=== PATIENT | male | born 1975 | race Caucasian/White ===

== ENCOUNTER 2019-08-31 20:22 | Inpatient (IN) | payer OTHER ==
[~2019-08-31] VITALS: Ht 175.3 cm; Wt 79.4 kg
[2019-08-31 20:56] LABS: BASOPHILS # (AUTO) 0.1 K/uL (0.0-8.0); BASOPHILS % (AUTO) 0.7 % (0.0-2.0); EOSINOPHILS # (AUTO) 0.5 K/uL (0.0-0.7); EOSINOPHILS % (AUTO) 3.8 % (0.0-7.0); HEMATOCRIT 31.7 % (36.7-47.1); HEMOGLOBIN 10.3 g/dL (12.5-16.3); LYMPHOCYTES # (AUTO) 1.8 K/uL (20.0-40.0); LYMPHOCYTES % (AUTO) 13.2 % (20.5-51.5); MEAN CORPUSCULAR HEMOGLOBIN 31.3 uug (23.8-33.4); MEAN CORPUSCULAR HGB CONC 33 g/dL (32.5-36.3); MONOCYTES # (AUTO) 1.1 K/uL (2.0-10.0); NEUTROPHILS % (AUTO) 74.3 % (38.5-71.5); PLATELET COUNT (AUTO) 676 K/uL (152-348); WHITE BLOOD COUNT (AUTO) 13.5 K/uL (3.6-10.2)
[2019-08-31 21:05] LABS: CREATININE 1.1 mg/dL (0.6-1.3)
[2019-08-31 21:11] LABS: BILIRUBIN,DIRECT 0.1 mg/dL (0.0-0.2); BILIRUBIN,TOTAL 0.1 mg/dL (0.2-1.0); TOTAL PROTEIN, SERUM 7.2 g/dL (6.4-8.2)
[2019-08-31] MEDS ORDERED: SERT100T PO (21:34)
[2019-08-31] MEDS ORDERED: ONDANSETRON 4 MG/2 ML VIAL IV ONE (21:45)
[2019-08-31] MEDS ORDERED: KETOROLAC TROMETHAMINE 30 MG INJ IVP ONE (21:45)
[2019-08-31] MEDS ORDERED: MAGNESIUM SULFATE/D5W 100 ML IV SCH (21:45)
[2019-08-31] MEDS ORDERED: IV NORMAL SALINE 1000 ML BAG IV ONE (21:45)
[2019-08-31] MEDS ORDERED: THIA100T13 PO (21:47)
[2019-08-31] MEDS ORDERED: ASPI-612 PO (21:47)
[2019-08-31] MEDS ORDERED: FOLI1TAB16 PO (21:47)
[2019-08-31] MEDS ORDERED: MULT1TAB73 PO (21:47)
[2019-08-31] MEDS ORDERED: DOCU-141 PO (21:47)
[2019-08-31] MEDS ORDERED: LIPA1CAP15 PO (21:47)
[2019-08-31] MEDS ORDERED: DOXE10CA2 PO (21:47)
[2019-08-31] MEDS ORDERED: KETOROLAC TROMETHAMINE 30 MG INJ ONE (21:52)
[2019-08-31] MEDS ORDERED: ONDANSETRON 4 MG/2 ML VIAL ONE (21:53)
[2019-08-31] MEDS ORDERED: MAGNESIUM SULFATE/D5W 100 ML ONE (21:53)
[2019-08-31] MEDS ORDERED: BENZONATATE 100 MG CAPSULE PO ONE (22:30)
[2019-08-31] MEDS ORDERED: BENZONATATE 100 MG CAPSULE ONE (22:42)
[2019-08-31] MEDS ORDERED: MORPHINE SULFATE 4 MG/1 ML DISP.SYRIN IV ONE (23:45)
[2019-09-01] MEDS ORDERED: MORPHINE SULFATE 4 MG/1 ML DISP.SYRIN ONE (00:05)
--- NOTE | 2019-09-01 00:11 | NUR ---
[facility] CALLED FOR ADMISSION WAITING FOR CALLBACK
--- NOTE | 2019-09-01 01:09 | NUR ---
Pt. admitted to [facility] , under care of GUILLE HO DNP Belongs List completed
[2019-09-01 01:46] VITALS: BP 114/64
--- NOTE | 2019-09-01 01:50 | NUR ---
Admitted a 44y/o M under the care of Dr. Rudolph. Dx: Pancreatitis. Patient is A&Ox4, ambulatory. c/o LLQ abdominal pain. Oriented patient to his room and w/ the use of call light. IV on RAC intact and patent. Admission protocol initiated. Safety measures observed. Call light within reach
[2019-09-01] MEDS ORDERED: ACETAMINOPHEN 325 MG TABLET PO PRN (02:15)
[2019-09-01] MEDS ORDERED: ONDANSETRON 4 MG/2 ML VIAL IV PRN (02:15)
[2019-09-01] MEDS ORDERED: Z GUARD REMEDY PASTE 57 GM TUBE TOP PRN (02:15)
[2019-09-01] MEDS: IV NS 1000 ML 1,000 ML IV PRN ×4 (02:35→21:35)
[2019-09-01] MEDS: MORPHINE SULFATE 2 MG/1 ML DISP.SYRIN IV PRN ×2 (02:51→07:46)
[2019-09-01] MEDS ORDERED: MEROPENEM 1 G in IV NORMAL SALINE 100 ML IV SCH (03:00)
[2019-09-01] MEDS ORDERED: PROMETHAZINE/CODEINE 5 ML UDC PO PRN ×2 (03:15→08:00)
[2019-09-01] MEDS ORDERED: MEROPENEM 1GM/NS 100ML IVPB **ER PYXIS ONLY IV ONE (03:27)
[2019-09-01] MEDS: ZOLPIDEM 5 MG TABLET PO PRN (03:47)
[2019-09-01] MEDS: NICOTINE 21 MG/24HR PATCH TD SCH (03:58)
[2019-09-01 05:53] VITALS: BP 114/70
[2019-09-01 06:57] LABS: BASOPHILS # (AUTO) 0.1 K/uL (0.0-8.0); EOSINOPHILS # (AUTO) 0.6 K/uL (0.0-0.7); EOSINOPHILS % (AUTO) 6.7 % (0.0-7.0); HEMATOCRIT 30.1 % (36.7-47.1); HEMOGLOBIN 9.7 g/dL (12.5-16.3); LYMPHOCYTES # (AUTO) 2.1 K/uL (20.0-40.0); LYMPHOCYTES % (AUTO) 21.5 % (20.5-51.5); MEAN CORPUSCULAR HEMOGLOBIN 31.5 uug (23.8-33.4); MEAN CORPUSCULAR HGB CONC 32 g/dL (32.5-36.3); MEAN CORPUSCULAR VOLUME 97.1 fL (73.0-96.2); MONOCYTES # (AUTO) 1.3 K/uL (2.0-10.0); MONOCYTES % (AUTO) 13.6 % (0.0-11.0); NEUTROPHILS # (AUTO) 5.5 K/uL (1.8-8.9); NEUTROPHILS % (AUTO) 57.2 % (38.5-71.5); PLATELET COUNT (AUTO) 620 K/uL (152-348)
[2019-09-01 07:06] LABS: BILIRUBIN,TOTAL 0.2 mg/dL (0.2-1.0); CREATININE 1.1 mg/dL (0.6-1.3); MAGNESIUM 1.9 mg/dL (1.8-2.4); PHOSPHOROUS 3.6 mg/dL (2.5-4.9); POTASSIUM 4.7 mmol/L (3.5-5.1); TOTAL PROTEIN, SERUM 6.4 g/dL (6.4-8.2); WHITE BLOOD COUNT (AUTO) 9.6 K/uL (3.6-10.2)
--- NOTE | 2019-09-01 07:30 | NUR ---
Received patient in bed, awake and verbally responsive. No signs of distress noted. No SOB. No complain of Pain or discomfort. IVF infusing well to Right AC. No signs of Infiltration noted. kept clean and comfortable. Will continue to monitor.
[2019-09-01] MEDS: LIPASE/PROTEASE/AMYLASE 4200 UNITS CAPSULE.DR PO SCH ×3 (08:00→17:18)
[2019-09-01] MEDS: SERTRALINE HCL 100 MG TABLET PO SCH (08:16)
[2019-09-01] MEDS: ASPIRIN 325 MG TABLET PO SCH (08:16)
[2019-09-01] MEDS: FOLIC ACID 1 MG TABLET PO SCH (08:16)
[2019-09-01] MEDS: MULTIVITAMINS,THERAPEUTIC TABLET PO SCH (08:16)
[2019-09-01] MEDS: THIAMINE HCL 100 MG TABLET PO SCH (08:16)
[2019-09-01] MEDS ORDERED: DOXEPIN 10 MG CAPSULE PO SCH (09:00)
[2019-09-01] MEDS: DOCUSATE SODIUM 100 MG CAPSULE PO SCH ×3 (09:00→17:18)
[2019-09-01] MEDS: GUAIFENESIN/CODEINE 5 ML LIQUID UDC PO PRN ×3 (10:23→21:28)
[2019-09-01 11:43] VITALS: BP 110/71
[2019-09-01] MEDS ORDERED: MORPHINE SULFATE 2 MG/1 ML DISP.SYRIN IV PRN (11:45)
[2019-09-01] MEDS: MORPHINE SULFATE 4 MG/1 ML DISP.SYRIN IV PRN ×4 (11:54→23:10)
[2019-09-01] MEDS: MEROPENEM 1 G in IV NORMAL SALINE 100 ML IV SCH ×2 (13:11→21:30)
[2019-09-01] MEDS ORDERED: diphenhydrAMINE 25 MG CAP PO PRN (14:45)
[2019-09-01 15:36] VITALS: BP 109/71
[2019-09-01 16:23] LABS: *BILIRUBIN,URIN NEGATIVE (NEGATIVE); *BLOOD, URINE NEGATIVE (NEGATIVE); *CLARITY,URINE CLEAR (CLEAR); *COLOR,URINE YELLOW (YELLOW); *KETONES,URINE NEGATIVE (NEGATIVE); *UROBILINOGEN,URINE 0.2 E.U./dl (NORMAL); LEUKOCYTE ESTERASE ,URINE NEGATIVE (NEGATIVE); NITRITE, URINE NEGATIVE (NEGATIVE); UGLUCOSE NEGATIVE (NEGATIVE)
--- NOTE | 2019-09-01 18:23 | NUR ---
Patient is awake, alert and verbally responsive. No signs of Distress noted. No SOB. Pain medication given as ordered. Cough medication given as ordered. All needs attended and met. kept clean and comfortable. Will Endorse to Oncoming Nurse.
[2019-09-01 20:00] VITALS: BP 122/67
[2019-09-01] MEDS: DOXEPIN 10 MG CAPSULE PO SCH (20:00)
--- NOTE | 2019-09-01 20:00 | NUR ---
NSG: Received patient in bed, Alert and oriented,awake and verbally responsive. No signs of distress noted. No SOB. c/o abdominal pain. IVF infusing well to Right AC. No signs of Infiltration noted. kept clean and comfortable. morphine 4 mg ivp given via rn for pain.Will continue to monitor.
--- NOTE | 2019-09-01 21:28 | NUR ---
nsg: patient c/o cough. Robitussin 5 ml po prn given.
--- NOTE | 2019-09-01 22:30 | NUR ---
Patient stated i am feeling better now. prn for cough effective.
[2019-09-02] MEDS: MORPHINE SULFATE 4 MG/1 ML DISP.SYRIN IV PRN ×3 (02:32→08:57)
[2019-09-02] MEDS: IV NS 1000 ML 1,000 ML IV PRN ×3 (02:52→21:10)
[2019-09-02] MEDS: GUAIFENESIN/CODEINE 5 ML LIQUID UDC PO PRN ×3 (04:35→22:56)
--- NOTE | 2019-09-02 04:38 | NUR ---
patient c/o cough. robitussin 5 ml po given per patient requested.
--- NOTE | 2019-09-02 04:47 | NUR ---
NSG: PATIENT ASK FOR PAIN MEDS EVERY 3 HRS ROUND THE CLOCK. AMBULATE TO BATH ROOM WITH STEADY GAIT. CONTINUE MONITOR FOR SAFETY.
[2019-09-02] MEDS: MEROPENEM 1 G in IV NORMAL SALINE 100 ML IV SCH ×3 (05:00→21:09)
[2019-09-02 06:15] VITALS: BP 123/78
[2019-09-02 06:17] LABS: BASOPHILS # (AUTO) 0.1 K/uL (0.0-8.0); BASOPHILS % (AUTO) 1.2 % (0.0-2.0); EOSINOPHILS # (AUTO) 0.7 K/uL (0.0-0.7); EOSINOPHILS % (AUTO) 9.8 % (0.0-7.0); HEMATOCRIT 29.7 % (36.7-47.1); HEMOGLOBIN 9.9 g/dL (12.5-16.3); LYMPHOCYTES # (AUTO) 1.6 K/uL (20.0-40.0); LYMPHOCYTES % (AUTO) 24.5 % (20.5-51.5); MEAN CORPUSCULAR HEMOGLOBIN 31.6 uug (23.8-33.4); MEAN CORPUSCULAR HGB CONC 33 g/dL (32.5-36.3); MONOCYTES # (AUTO) 0.8 K/uL (2.0-10.0); MONOCYTES % (AUTO) 11.8 % (0.0-11.0); NEUTROPHILS # (AUTO) 3.5 K/uL (1.8-8.9); NEUTROPHILS % (AUTO) 52.7 % (38.5-71.5); PLATELET COUNT (AUTO) 574 K/uL (152-348); RED BLOOD CELL COUNT(AUTO) 3.13 MIL/uL (4.06-5.63); WHITE BLOOD COUNT (AUTO) 6.7 K/uL (3.6-10.2)
[2019-09-02 06:28] LABS: BILIRUBIN,DIRECT 0.1 mg/dL (0.0-0.2); BILIRUBIN,TOTAL 0.3 mg/dL (0.2-1.0); CREATININE 0.8 mg/dL (0.6-1.3); MAGNESIUM 1.5 mg/dL (1.8-2.4); PHOSPHOROUS 3.6 mg/dL (2.5-4.9); TOTAL PROTEIN, SERUM 6.5 g/dL (6.4-8.2)
[2019-09-02] MEDS: LIPASE/PROTEASE/AMYLASE 4200 UNITS CAPSULE.DR PO SCH ×3 (06:30→16:46)
--- NOTE | 2019-09-02 07:20 | NUR ---
Received patient in Bed, awake and verbally responsive. No signs of Distress noted. No SOB. No complain of pain or discomfort at this time. Will continue to monitor.
[2019-09-02 08:01] VITALS: BP 125/83
[2019-09-02] MEDS: FOLIC ACID 1 MG TABLET PO SCH (08:03)
[2019-09-02] MEDS: ASPIRIN 325 MG TABLET PO SCH (08:03)
[2019-09-02] MEDS: THIAMINE HCL 100 MG TABLET PO SCH (08:03)
[2019-09-02] MEDS: NICOTINE 21 MG/24HR PATCH TD SCH (08:03)
[2019-09-02] MEDS: DOCUSATE SODIUM 100 MG CAPSULE PO SCH ×3 (08:03→16:46)
[2019-09-02] MEDS: MULTIVITAMINS,THERAPEUTIC TABLET PO SCH (08:03)
[2019-09-02] MEDS: SERTRALINE HCL 100 MG TABLET PO SCH (08:03)
[2019-09-02] MEDS: HYDROMORPHONE 1 MG/1 ML DISP.SYRIN IV PRN ×3 (11:22→21:09)
[2019-09-02] MEDS ORDERED: MAGNESIUM OXIDE 400 MG TABLET PO ONE (12:00)
[2019-09-02 15:39] VITALS: BP 126/82
--- NOTE | 2019-09-02 18:17 | NUR ---
Patient in Bed, awake and verbally responsive. No signs of Distress noted. no SOB. Pain Medication given as ordered. No nausea/Vomiting noted. IVF running at 200cc/hr. no signs of infiltration noted. kept comfortable. All needs attended. Will Endorse to oncoming nurse.
--- NOTE | 2019-09-02 20:00 | NUR ---
Patient received into care awake and alert, sitting up in bed watching television. Patient has no complaints of pain at this time. IV site is patent and intact with IVF of NS running @ 200mL/hr. All safety and fall precaution measures are in place. Personal items and call light are within reach at all times. Will continue to monitor.
[2019-09-02] MEDS: DOXEPIN 10 MG CAPSULE PO SCH (21:09)
[2019-09-02 22:00] VITALS: BP 123/84
[2019-09-03] MEDS: ZOLPIDEM 5 MG TABLET PO PRN (01:08)
[2019-09-03] MEDS ORDERED: HYDROMORPHONE 1 MG/1 ML DISP.SYRIN ONE (02:05)
[2019-09-03 04:00] VITALS: BP 138/94
--- NOTE | 2019-09-03 05:00 | NUR ---
Patient slept throughout night after receiving prescribed ambien. Complaints of pain were addressed with prescribed analgesics, with relief verbalized by patient. IV site is patent and intact and prescribed IV antibiotics were provided as ordered and tolerated well. All prescribed PO medications were provided as ordered and tolerated well, with no adverse side effects verbalized or observed. Safety and fall precaution measures remain in place. Call light and personal items are within reach at all times.
[2019-09-03] MEDS: MEROPENEM 1 G in IV NORMAL SALINE 100 ML IV SCH (05:09)
[2019-09-03] MEDS: HYDROMORPHONE 1 MG/1 ML DISP.SYRIN IV PRN ×2 (05:09→08:58)
[2019-09-03 06:59] LABS: BASOPHILS # (AUTO) 0.1 K/uL (0.0-8.0); BASOPHILS % (AUTO) 2.6 % (0.0-2.0); EOSINOPHILS # (AUTO) 0.7 K/uL (0.0-0.7); EOSINOPHILS % (AUTO) 11.8 % (0.0-7.0); HEMATOCRIT 31.4 % (36.7-47.1); HEMOGLOBIN 10.3 g/dL (12.5-16.3); LYMPHOCYTES # (AUTO) 1.4 K/uL (20.0-40.0); LYMPHOCYTES % (AUTO) 25.9 % (20.5-51.5); MEAN CORPUSCULAR HEMOGLOBIN 31.7 uug (23.8-33.4); MEAN CORPUSCULAR HGB CONC 33 g/dL (32.5-36.3); MEAN CORPUSCULAR VOLUME 96.3 fL (73.0-96.2); MONOCYTES # (AUTO) 0.8 K/uL (2.0-10.0); MONOCYTES % (AUTO) 14.1 % (0.0-11.0); NEUTROPHILS # (AUTO) 2.6 K/uL (1.8-8.9); NEUTROPHILS % (AUTO) 45.6 % (38.5-71.5); PLATELET COUNT (AUTO) 558 K/uL (152-348); RED BLOOD CELL COUNT(AUTO) 3.26 MIL/uL (4.06-5.63); WHITE BLOOD COUNT (AUTO) 5.6 K/uL (3.6-10.2)
[2019-09-03 07:15] LABS: CREATININE 0.7 mg/dL (0.6-1.3); MAGNESIUM 1.6 mg/dL (1.8-2.4); POTASSIUM 4.5 mmol/L (3.5-5.1)
[2019-09-03] MEDS ORDERED: MAGNESIUM OXIDE 400 MG TABLET PO ONE (07:45)
[2019-09-03] MEDS: THIAMINE HCL 100 MG TABLET PO SCH (08:55)
[2019-09-03] MEDS: SERTRALINE HCL 100 MG TABLET PO SCH (08:55)
[2019-09-03] MEDS: LIPASE/PROTEASE/AMYLASE 4200 UNITS CAPSULE.DR PO SCH (08:55)
[2019-09-03] MEDS: DOCUSATE SODIUM 100 MG CAPSULE PO SCH (08:55)
[2019-09-03] MEDS: ASPIRIN 325 MG TABLET PO SCH (08:55)
[2019-09-03] MEDS: FOLIC ACID 1 MG TABLET PO SCH (08:55)
[2019-09-03] MEDS: NICOTINE 21 MG/24HR PATCH TD SCH (08:55)
[2019-09-03] MEDS: MULTIVITAMINS,THERAPEUTIC TABLET PO SCH (08:55)
[2019-09-03] MEDS ORDERED: DIPH25TA62 PO (10:44)
[2019-09-03] MEDS ORDERED: HYDR-4384 PO (10:44)
[2019-09-03] MEDS ORDERED: GUAI237L83 PO (10:44)
[2019-09-03 10:50] VITALS: BP 127/79
--- NOTE | 2019-09-03 11:44 | NUR ---
PATIENT WAS GIVEN DISCHARGE INSTRUCTION, IV REMOVED, AND PRESCRIPTION GIVEN. PATIENT WAS TAKEN TO DISCHARGE AREA WHERE HE WAS PICKED UP. NO DISTRESS NOTED AT TIME OF DISCHARGE.
== END 2019-09-03 11:45 | disposition home or self-care (01) | DRG 282 ==
LOC: ER 20:32 → MEDSURG3 09-01 00:20
PROVIDERS: ADMIT Nurse Practitioner Acute Care; ATTEND Nurse Practitioner Acute Care
DX: K85.90 Acute pancreatitis without necrosis or infection, unspecified (principal); E44.1 Mild protein-calorie malnutrition; E83.42 Hypomagnesemia; F10.29 Alcohol dependence with unspecified alcohol-induced disorder; M84.48XA Pathological fracture, other site, initial encounter for fracture; D63.8 Anemia in other chronic diseases classified elsewhere; Z79.82 Long term (current) use of aspirin; Z79.899 Other long term (current) drug therapy; Y90.9 Presence of alcohol in blood, level not specified; F17.210 Nicotine dependence, cigarettes, uncomplicated; K59.00 Constipation, unspecified; F32.9 Major depressive disorder, single episode, unspecified; F41.9 Anxiety disorder, unspecified; R73.9 Hyperglycemia, unspecified; K86.1 Other chronic pancreatitis; K86.81 Exocrine pancreatic insufficiency
CPT/HCPCS: 36415; 71045; 83690; 83735; 84100; 85025; 93005; A4663; G0378; J1170; J1885; J2185; J2270; J2405; J3475; J3490; J7030